=== PATIENT | male | born 2000 | race African-American/Black ===

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

== ENCOUNTER 2019-05-28 18:22 | Emergency (ER) | payer OTHER ==
[~2019-05-28] VITALS: Ht 190.5 cm; Wt 77.1 kg
[2019-05-28 19:21] VITALS: Ht 190.5 cm; Wt 77.1 kg
[2019-05-28 20:39] VITALS: BP 129/76
== END 2019-05-28 20:39 | disposition home or self-care (01) ==
LOC: ED 18:22
DX: Z11.3 Encounter for screening for infections with a predominantly sexual mode of transmission (principal)
CPT/HCPCS: 87491; 87591; J0696